=== PATIENT | male | born 1950 | race Caucasian/White ===

== ENCOUNTER 2019-08-16 10:46 | Inpatient (IN) | payer MEDICARE, SELFPAY ==
--- NOTE | ~2019-08-16 | US_ITS ---
EXAMINATION: US paracentesis abd w/image DATE: 08/16/2019 17:20 ENGINE WIPER INDICATION: Ascites TECHNIQUE: Survey imaging of the abdomen was performed. The procedure for ultrasound-guided thoracen tesis and its risk and benefits were discussed with the patient. Risks included but were not limited to pain, bleeding, pneumothorax and infection. The patient verbalized understanding and provided wri tten consent. A time-out was performed to document the patient's name, date of , and site of procedure. The [facility] lower abdomen was prepped and draped in usual sterile fashion. 1% lidocaine was used for local a nesthesia. Utilizing ultrasound guidance, a 21-gauge needle was advanced into pleural fluid. Aspira tion was performed. The patient tolerated procedure without immediate complication. Sterile bandages were applied over t he aspiration site(s).] FINDINGS: 5 L of tracie color fluid obtained without complication. IMPRESSION: 1. Successful ultrasound-guided paracentesis. 5 L of tracie-colored fluid obtained. Reviewed, dictated and finalized at location A. NE WIPER IMPRESSION: 1. Successful ultrasound-guided paracentesis. 5 L of tracie-colored fluid april rolle.
--- NOTE | ~2019-08-16 | CT_ITS ---
EXAMINATION: CT abdomen pelvis w con DATE: 08/16/2019 12:23 INDICATION: Jaundice. Weight loss. TECHNIQUE: Computed tomography (CT) of the abdomen and pelvis was performed with 100 cc Omnipaque 350 intravenous contrast. The dose-length product was 1369.22 mGy-cm. Automated exposure control and ite rative reconstruction technique were employed. COMPARISON: None. FINDINGS: Small pleural effusions, right greater than left. There is right lower lobe atelectasis. Th ere is atherosclerosis of the coronary arteries. Heart size is normal. No evidence for aortic aneurys m. 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 There is periportal lymphadenopathy. There are paraesophageal lymph nodes in the lower thorax. There is a necrotic lymph node adjacent to the right renal hilum measuringr 2.4 cm. There are in numerable hypovascular masses of the liver involving all lobes most conglomerate in the left hepatic lobe, consistent with metastases. Large amount of ascites. Diffuse subcutaneous edema co nsistent with anasarca. Colonic diverticulosis. No focal colonic masses. Normal appendix. There is a complex heterogeneously enhancing 2.8 cm left renal mass, consistent with renal cell carci noma. There are accessory splenules at the splenic hilum. The adrenal glands are unremarkable. No foc al hepatic masses. Right kidney within normal limits. Sclerotic lesion of the left sacrum. Moderate t horacic and lumbar spondylosis. IMPRESSION: 1. Innumerable hypovascular masses of the liver, compatible with metastases, most confluent in the le ft hepatic lobe. 2: Complex enhancing 2.8 cm left renal mass, consistent with renal cell carcinoma. 3: Abdominal lymphadenopathy, compatible with metastatic disease. 4: Large amount of ascites, small pleural effusions and subcutaneous edema, consistent with anasarca. 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 6: Sclerotic lesion of the left sacrum which may represent a bone island or metastatic disease. Reviewed, dictated and finalized at location A. AKER IMPRESSION: 1. Innumerable hypovascular masses of the liver, compatible with metastases, mo st confluent in the left hepatic lobe. 2: Complex enhancing 2.8 cm left renal mass, consistent with renal cell carcino ma. 3: Abdominal lymphadenopathy, compatible with metastatic disease. 4: Large amount of ascites, small pleural effusions and subcutaneous edema, con sistent with anasarca. 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 6: Sclerotic lesion of the left sacrum which may represent a bone island or me tastatic disease.
--- NOTE | ~2019-08-16 | US_ITS ---
EXAMINATION: US biopsy liver DATE: 08/19/2019 14:12 INDICATION: Liver mass. TECHNIQUE: The procedure including the risks, benefits, and alternatives was discussed with the patie nt. Risks discussed included bleeding and infection. The patient understood the risks and agreed to p roceed. The skin overlying the left hepatic lobe was prepped and draped in usual sterile fashion. An esthetic was administered with 1% lidocaine subcutaneously. An 18 gauge core biopsy needle was then used to obtain 3 core biopsy specimens under continuous sonographic guidance. The entry site was daniele aquilino and dressed. There were no immediate complications. FINDINGS: Ultrasound images demonstrate the needle in a large mass in left hepatic lobe. IMPRESSION: 1. Ultrasound-guided core needle biopsy of a liver mass. Reviewed, dictated and finalized at location A. BER OPERATOR
--- NOTE | ~2019-08-16 | US_ITS ---
EXAMINATION: US paracentesis abd w/image DATE: 08/19/2019 14:15 INDICATION: Ascites. TECHNIQUE: The procedure and its risks, benefits, and alternatives were discussed with the patient. P otential risks discussed included bleeding and infection. The skin was prepped and draped in sterile fashion. 1% lidocaine was used for local anesthesia. Under ultrasound guidance, a 5 Fr catheter with trochar was advanced into the ascites in the left lower quadrant. Fluid was aspirated. The catheter w as removed, and a dressing was applied. There were no immediate complications. FINDINGS: Ultrasound images demonstrate ascites and the catheter within the fluid. IMPRESSION: 1. Successful ultrasound-guided paracentesis yielding 5000 mL of tracie-colored fluid. Reviewed, dictated and finalized at location A. CORNER STAYER MACHINE OPERATOR
--- NOTE | ~2019-08-16 | XR_ITS ---
EXAMINATION: XR shoulder LT min 2V EXAM DATE: 08/20/2019 18:19 INDICATION: Left shoulder pain. TECHNIQUE: The following left shoulder projections obtained: frontal projection with internal rotatio n, frontal projection with external rotation, Grashey, and scapular Y view (4+ views). There is no p rior study for comparison. FINDINGS: No evidence of left shoulder rotator cuff calcific tendinosis. There is mild left shoulder primary osteoarthritis. There are no acute fractures or dislocations identified. There is no subcut aneous gas. The soft tissue is unremarkable. There are no radiopaque foreign bodies. IMPRESSION: Mild left shoulder osteoarthritis. Reviewed, dictated and finalized at location A. ER APPRENTICE PHOTOENGRAVING
[2019-08-16 10:52] VITALS: BP 115/63; PULSE 97; RESP 19; TEMP 36.4; O2SAT 100
[2019-08-16 11:18] LABS: Basophils Percent Auto 0.2 % (0.2-1.2); Eosinophils Percent Auto 0.2 % (0-4.4); Hematocrit 46.9 % (42.0-52.0); Hemoglobin 15.1 g/dL (14.0-18.0); Immature Granulocyte Absolute 0.04 K/mm3 (0.00-0.031); Immature Granulocyte Percent A 0.6 % (0-0.5); Immature Platelet Fraction Pct 6.3 % (0.9-11.2); Lymphocytes Absolute Auto 0.72 K/mm3 (0.9-3.2); Lymphocytes Percent Auto 11.1 % (18.3-44.2); Mean Corpuscular HGB Conc 32.2 g/dl (32-36); Mean Corpuscular Hemoglobin 31.7 pg (26-34); Mean Corpuscular Volume 98.5 fl (80-100); Mean Platelet Volume 11.8 fl (7.4-10.4); Monocytes Absolute Auto 0.5 K/mm3 (0.1-0.6); Monocytes Percent Auto 7.4 % (2.6-8.5); Neutrophils Absolute Auto 5.2 K/mm3 (1.3-6.7); Neutrophils Percent Auto 80.5 % (45.5-73.1); Platelet Count Result 129 k/mm3 (150-375); Red Blood Count 4.76 M/mm3 (4.6-6.20); White Blood Count 6.5 K/mm3 (4.5-10.0)
[2019-08-16 11:26] LABS: Lactic Acid 2.2 mmol/L (0.7-2.1)
[2019-08-16 11:27] LABS: Alanine Aminotransferase 40 U/L (4-50); Albumin Level 3.5 g/dL (3.5-5.1); Alkaline Phosphatase 229 U/L (38-126); Aspartate Amino Transferase 83 U/L (17-59); Bilirubin Direct 1.2 mg/dL (0-0.3); Bilirubin,Total 4.8 mg/dL (0.2-1.3); Blood Urea Nitrogen 32 mg/dL (9-20); Carbon Dioxide 25 mmol/L (22-30); Chloride 101 mmol/L (98-107); Estimated CRCL calculation 69 ml/min; Estimated Glomerular Filt Rate > 60; Glucose 81 mg/dL (75-110); Lipase 32 U/L (23-300); Potassium 3.5 mmol/L (3.4-5.0); Sodium 138 mmol/L (137-145)
--- NOTE | 2019-08-16 11:47 | ED.GENADULT ---
HPI - General Adult General Chief complaint: Unspecified Stated complaint: L FLANK PAIN, BILAT ANKLE SWELLING Time Seen by Provider: 08/16/19 11:40 Source: patient and RN notes reviewed Mode of arrival: ambulatory Limitations: no limitations History of Present Illness HPI narrative: Pt is a 69 y/o male who presents to the ED with c/o BLE edema which began 5 months ago. Pt also reports frequent falls, bilateral flank pain, jaundice in his eyes and on his face, difficulty walking, decreased appetite, generalized weakness, SOB, lower diffuse ABD pain, and ABD distension, but denies diarrhea, dysuria, or urinary frequency. However, the pt reports his urine is much darker than normal. He reports due to his frequent falls, the pt has injured his scapulas. He also has experienced weight loss, but he is unsure of how much weight he has lost. Pt reports a PMHx of HTN, but denies hepatitis. He denies having any major surgeries in the past. complaint: BLE edema Onset (ago): month(s) (5 months ago) Location: lower extremity (BLE) Radiation: non-radiation Pain Consistency: constant Associated symptoms: loss of appetite (decreased appetite), shortness of breath, weakness (generalized) and other (bilateral flank pain; jaundice in his eyes and face; lower diffuse ABD pain; ABD distension) Related Data Home Medications Medication Instructions Recorded Confirmed atenolol 08/16/19 Allergies Allergy/AdvReac Type Severity Reaction Status Date / Time Tetanus Vaccines and Toxoid Allergy Unknown Verified 06/20/19 10:50 Review of Systems Review of Systems: All systems reviewed & are unremarkable except as noted in HPI and below Constitutional: Constitutional: Reports poor appetite (decreased appetite) and Reports weakness (generalized) Cardiovascular: Cardiovascular: Reports leg edema (BLE edema) Respiratory: Respiratory: Reports dyspnea Gastrointestinal: Gastrointestinal: Reports abdominal pain (lower diffuse ABD pain), Denies diarrhea and Reports other (ABD distension) Genitourinary: Genitourinary: Denies dysuria and Denies urinary frequency Musculoskeletal: Musculoskeletal: Reports back pain (bilateral flank pain) Integumentary/Breasts: Skin/Breast: Reports other (jaundice in eyes and on face) [facility] Past Medical History Medical History (Updated 08/16/19 @ 15:18 by Wilmer Smith MD) Hypertension Family History Family History (System 06/20/19 @ 10:50 by Paula Murphy) Mother Carcinoma of colon Family history of primary malignant neoplasm of liver Social History Social History (System 06/20/19 @ 10:50 by Paula Murphy) Smoking status: Heavy tobacco smoker Alcohol intake: current Gender identity (if verbalized by the patient): Male Exam Narrative: Exam Narrative: GENERAL: Ill ll-appearing, well-nourished, and in no acute distress. HEAD: Normocephalic, atraumatic. EYES: PERRL and EOMI. scleral icterus noted ENT: Mucous membranes moist. Dilated capillaries to the nose and cheeks. CHEST: Clear to auscultation. No respiratory distress. HEART: Regular rate and rhythm. Normal capillary refill. ABDOMEN: Soft, nontender, nondistended, ascites within abdomen.. EXTREMITIES: Normal range of motion. 3+ edema. SKIN: Warm, dry, jaundice, no rash. NEURO: Alert and oriented x3. Course Consultations Consultation #1: Discussed case with Dr. Rdz who agreed to consult the pt. Stated the pt's symptoms could be due to an obstruction, however, advised to consult GI specialist for the pt. Date: 08/16/19 Time: 13:45 Consultation #2: Discussed case with GI specialist, Dr. Hill. Dr. Hill stated the pt?s symptoms are likely related to liver metastases and not an obstruction. He advises a paracentesis and further workup on the pt. Date: 08/16/19 Time: 14:13 Consultation #3: Discussed case with hospitalist, Letha Balbuena, who agreed pt for admission. Date: 08/16/19 Time: 14:25 Vital Signs Vital
--- NOTE | 2019-08-16 12:07 | PC.NURSE ---
gave pt a urinal for a urine sample, pt said he is unable to urinate at this time.
[2019-08-16 12:09] VITALS: BP 108/78; PULSE 58; RESP 20; O2SAT 97
--- NOTE | 2019-08-16 12:24 | ECG_ITS ---
Measurements Intervals [place] Rate: 59 P: -30 NE: 170 QRS: -9 QRSD: 113 T: -29 QT: 441 QTc: 439 Interpretive Statements SINUS BRADYCARDIA WITH SINUS ARRHYTHMIA INCOMPLETE RIGHT BUNDLE BRANCH BLOCK ANTEROSEPTAL INFARCT, AGE INDETERMINATE BORDERLINE ST-T WAVE ABNORMALITY- DIFFUSE LEADS BASELINE ARTIFACT- I, II, AVR, AVF, V4-V5 ABNORMAL ECG Electronically Signed On 08-16-2019 12:51:31 [employer] SCI[employer] READ[employer] by Gurmeet Watson D.O.
--- NOTE | 2019-08-16 12:44 | PC.NURSE ---
pt educated on providing urine sample in a timely manner so we can get his lab results completed and so we can better treat him. pt verbalized understanding and states he will try to urinate at this time.
[2019-08-16 13:07] VITALS: BP 109/53; PULSE 58; RESP 20; O2SAT 96
[2019-08-16 14:48] LABS: INR 1.1; Prothrombin Time 13.5 Seconds (11.1-14.7)
--- NOTE | 2019-08-16 15:19 | ADMGEN ---
This patient, Charles Harman, was admitted to Medical Room 252-01. Patient/family oriented to hospital policies and general routines including ID bracelet, bed and alarms, visiting hours, pain management, procedures, bathroom and other care routines, personal items, smoking policy, room service/diet, and visiting hours. Valuables list has been completed. Information on how to activate the Rapid Response Team has been discussed. Patient/Family are encouraged to report perceived risks to care and to ask questions if they do not understand what they are told or what they should do.
[2019-08-16 15:20] VITALS: BMI 30.4
--- NOTE | 2019-08-16 15:50 | PC.NURSE ---
To ultrasound for paracentesis via stretcher with clinical staff rn. Consent obtained and on chart.
--- NOTE | 2019-08-16 15:50 | WPDGICN ---
Assessment and Plan Additional Plan This is a 69-year-old white male patient seen in evaluation at the request of the emergency room. I am asked to see patient because of jaundice and abnormal CT scan.. Patient reports increasing malaise over the last 1 month. He has had poor to minimal appetite and has lost approximately 20-30 lb. He began to have swelling in his abdomen and lower extremities. Upon presenting to the emergency room was found to have yellow jaundice. Patient reports a vague left lower quadrant abdominal discomfort. He denies any other overt pain. His urine has become somewhat dark in color. He denies any fevers. Past medical history is significant for prostate cancer treated at the [facility] 10 years ago by radiation therapy. His subsequent PSA values have been normal. He he has been treated for hypertension with a tunnel all. Current medications include only a tunnel He has no stated drug allergies. Family history is significant his mother had cancer of the colon. Review of systems is significant for no appetite. Room 20-30 lb weight loss. Physical exam reveals patient to be alert. he has scleral icterus. Oral mucosa is unremarkable. Lungs are clear to auscultation and percussion. Heart is without murmur or extra sounds. Abdomen is distended with shifting dullness. No organomegaly is evident. No localized tenderness is noted. Digital rectal exam is unremarkable. Extremities reveal 3+ edema bilaterally. Laboratory tests reveal CBC to be normal. Total bilirubin 4.8 direct bilirubin 1.2 AST 83 ALT 40 alk-phos 229. CT scan of the abdomen reveals liver lesions consistent with metastases. he has a renal mass consistent with renal cell carcinoma. Significant ascites is noted to be present. Impression 1. Abnormal CT scan. This is suggestive of a renal cancer and liver metastases. 2. Liver metastases. This is somewhat unlikely to come from the renal mass. Other etiologies may need to be considered . oncology consult will be obtained. 3. Ascites. Very likely malignant ascites. Plan is for paracentesis for analysis as well as cytology. Plan is for CT-guided liver biopsy and paracentesis. Oncology consult for their input on potential treatment. Will consider further investigations searching for primary malignancy depending on Oncology input. Patient's mother has colon cancer raising colon cancer as a potential primary. Chest x-ray is advised to search for possible lung lesions. GI Consult Note Consult date/time: 08/16/19 15:50 HPI: Charles Harman is a 69 year old male PMFSH Past Medical History Medical History (Updated 08/16/19 @ 15:18 by Wilmer Smith MD) Hypertension Family History Family History (System 06/20/19 @ 10:50 by Paula Murphy) Mother Carcinoma of colon Family history of primary malignant neoplasm of liver Social History Social History (System 06/20/19 @ 10:50 by Paula Murphy) Smoking packs per day: 0.5 Smoking cigarettes per day: 10.0 Years smoked: 57 Smoking pack-years: 28.50 Smoking status: Current every day smoker Tobacco type: cigarettes Alcohol intake: former Substance use: never Substance use type: does not use Other substance usage details: heavy alcohol drinker 20 years ago Gender identity (if verbalized by the patient): Male Spiritual care concerns: No Agree to blood products: Yes Meds Home Medications and Allergies Home Medications Medication Instructions Recorded Confirmed Type atenolol 08/16/19 History Allergies Allergy/AdvReac Type Severity Reaction Status Date / Time Tetanus Vaccines and Toxoid Allergy Unknown Verified 06/20/19 10:50 Vital Signs Vital Signs - 24 hr 08/16/19 10:52 08/16/19 12:09 08/16/19 13:07 Temperature 36.4 C Pulse Rate 97 58 L 58 L Respiratory Rate 19 20 20 Blood Pressure 115/63 108/78 109/53 L Pulse Oximetry 100 97 96 Results Labs CBC
[2019-08-16 15:58] VITALS: BMI 30.4
--- NOTE | 2019-08-16 17:16 | PC.NURSE ---
Patient returned from ultrasound via stretcher with transporter. No distress noted. Bandaid D/I to left lateral abdomen.
[2019-08-16] MEDS: SODIUM CHLORIDE 0.9% IV 1,000 ML 125 ML IV CONT (17:46)
[2019-08-16 17:56] LABS: Appearance Peritoneal Fluid Hazy (Clear); Color Peritoneal Fluid Yellow (Colorless); Lymphocytes Peritoneal Fluid 32 %; Macrophages Peritoneal Fluid 22 %; Mesothelial Cells Peritoneal Fluid 14 %; Monocytes Peritoneal Fluid 20 %; Neutrophils Peritoneal Fluid 12 % (0-25); Nucleated Cells Peritoneal Flu 156 /uL (0-500); RBC Peritoneal Fluid 4616 /uL (0-100000); Source Peritoneal Fluid Peritoneal Fluid
--- NOTE | 2019-08-16 21:28 | PM.IMHP ---
H&P: HPI History of Present Illness Chief complaint: LE swelling Narrative: This is a 69-year-old with known past medical history of hypertension and previous prostate cancer who presented to the hospital with a complaint of worsening low bilateral lower extremity swelling which has been ongoing for the past 5 months. The patient also complains of significant generalized weakness, orthopnea, exertional shortness of breath, significant abdominal distension, and increased diffuse yellow skin color. The patient denies any recent fevers or chills, coughing, sore throat, dysuria, hematuria, diarrhea, or rectal bleeding. The patient was evaluated emergency room today and found to have anasarca, elevated liver enzymes, as well as findings on CT scan consistent with metastatic disease. The patient has no previous history of liver disease or hepatitis. The patient tells me that he has never been worked up for this before in the past and he was not aware of these findings. Oncology, Dr. Rdz has been consulted by the ER provider who has asked that we admit the patient to the hospital for a liver biopsy. Gastroenterology, Dr. Hill has also been consulted and has had the patient undergo a paracentesis today. The patient tells me that they pulled off 5 liters of fluid today from his abdomen. On my encounter with the patient tonight he has no other complaints and tells me that he wants to know what his treatment choices are. Review of Systems Review of Systems: All systems reviewed & are unremarkable except as noted in HPI and below PMFSH Past Medical History Medical History Hypertension Prostate cancer Family History Family History Mother Family history of primary malignant neoplasm of liver Carcinoma of colon Diabetes mellitus Father Diabetes mellitus Heart disease Sibling Diabetes mellitus Sibling Diabetes mellitus Social History Social History Smoking packs per day: 0.5 Smoking cigarettes per day: 10.0 Years smoked: 57 Smoking pack-years: 28.50 Smoking status: Current every day smoker Tobacco type: cigarettes Alcohol intake: former Substance use: never Substance use type: does not use Other substance usage details: heavy alcohol drinker 20 years ago Gender identity (if verbalized by the patient): Male Spiritual care concerns: No Agree to blood products: Yes Meds Home Medications and Allergies Home Medications Medication Instructions Recorded Confirmed Type aspirin [Aspirin Low Dose] 81 mg PO DAILY 08/16/19 08/16/19 History atenolol 100 mg PO DAILY 08/16/19 08/16/19 History cholecalciferol (vitamin D3) 2,000 unit PO DAILY 08/16/19 08/16/19 History [Vitamin D3] Allergies Allergy/AdvReac Type Severity Reaction Status Date / Time Tetanus Vaccines and Toxoid Allergy Unknown Verified 06/20/19 10:50 Vital Signs Vital Signs - 24 hr 08/16/19 10:52 08/16/19 12:09 08/16/19 13:07 Temperature 36.4 C Pulse Rate 97 58 L 58 L Respiratory Rate 19 20 20 Blood Pressure 115/63 108/78 109/53 L Pulse Oximetry 100 97 96 Exam Const: General: cooperative, no acute distress, alert, awake and ill appearing chronically Nutritional Appearance: obese Orientation/consciousness: oriented x3 HENMT: Head: normal to inspection General nose exam: external nose normal Face and sinus: normal facial exam Mouth: Yes oral mucosae normal and Yes oropharynx normal Eyes: Pupils: PERRL and other (icteric) EOM: EOM intact bilaterally Neck: Neck: supple and no JVD Thyroid: thyroid normal Lymphatic: lymphadenopathy not noted Resp: Effort & Inspection: normal respiratory effort Auscultation: clear to auscultation bilaterally Cardio: Rate: regular rate Rhythm: regular rhythm Heart sounds: murmur systolic GI
[2019-08-16 22:00] VITALS: BP 96/63; PULSE 54; RESP 20; TEMP 36.1; O2SAT 100
[2019-08-17 04:00] VITALS: BP 103/53; PULSE 80; RESP 20; TEMP 35.7; O2SAT 96
[2019-08-17 06:13] LABS: Alanine Aminotransferase 33 U/L (4-50); Albumin Level 2.7 g/dL (3.5-5.1); Alkaline Phosphatase 173 U/L (38-126); Aspartate Amino Transferase 67 U/L (17-59); Bilirubin,Total 2.6 mg/dL (0.2-1.3); Blood Urea Nitrogen 30 mg/dL (9-20); Calcium 10.3 mg/dL (8.4-10.2); Carbon Dioxide 31 mmol/L (22-30); Chloride 101 mmol/L (98-107); Estimated CRCL calculation 69 ml/min; Estimated Glomerular Filt Rate > 60; Glucose 95 mg/dL (75-110); Sodium 139 mmol/L (137-145)
[2019-08-17 06:58] LABS: Hepatitis B Surface Antigen Negative (Negative)
[2019-08-17 07:03] LABS: HAV RESULT Negative (Negative); Hepatitis B Core IgM Result Negative (Negative)
[2019-08-17] MEDS: POTASSIUM CHLORIDE 20 MEQ TABLET 40 MEQ PO ×2 (07:06→15:22)
[2019-08-17 07:10] LABS: Lactic Acid Reflex 1.2 mmol/L (0.7-2.1)
[2019-08-17 07:15] LABS: Hepatitis C Virus Antibody Negative (Negative)
[2019-08-17 08:08] LABS: Basophils Percent Auto 0.2 % (0.2-1.2); Eosinophils Percent Auto 0.4 % (0-4.4); Hematocrit 40.4 % (42.0-52.0); Hemoglobin 12.7 g/dL (14.0-18.0); Immature Granulocyte Absolute 0.03 K/mm3 (0.00-0.031); Immature Granulocyte Percent A 0.6 % (0-0.5); Lymphocytes Absolute Auto 0.83 K/mm3 (0.9-3.2); Lymphocytes Percent Auto 16.3 % (18.3-44.2); Mean Corpuscular HGB Conc 31.4 g/dl (32-36); Mean Corpuscular Hemoglobin 31.4 pg (26-34); Mean Platelet Volume 12.4 fl (7.4-10.4); Monocytes Absolute Auto 0.5 K/mm3 (0.1-0.6); Neutrophils Absolute Auto 3.7 K/mm3 (1.3-6.7); Neutrophils Percent Auto 72.5 % (45.5-73.1); Platelet Count Result 111 k/mm3 (150-375); Red Blood Count 4.04 M/mm3 (4.6-6.20); Red Cell Distribution Width 15.9 % (11.5-14.5); White Blood Count 5.1 K/mm3 (4.5-10.0)
--- NOTE | 2019-08-17 08:57 | WPDGIPROGNO ---
Progress Note: A&P Additional Plan Patient appears more comfortable this morning. Had paracentesis with 4liters withdrawn yesterday. Today abdomen is soft no localized tenderness evident. Impression abnormal CT scan suggesting liver metastases. Also a renal cancer is suspected. Plan to review his cytology from ascitic fluid when available. CT-guided liver biopsy is also suggested. Oncology consult is pending. Continue supportive care for now. Subjective Date/time seen: 08/17/19 08:57 Objective Data Vital Signs Vital Signs: Vital Signs - 24 hr 08/16/19 10:52 08/16/19 12:09 08/16/19 13:07 Temperature 36.4 C Pulse Rate 97 58 L 58 L Respiratory Rate 19 20 20 Blood Pressure 115/63 108/78 109/53 L Pulse Oximetry 100 97 96 08/16/19 22:00 08/17/19 04:00 Temperature 36.1 C L 35.7 C L Pulse Rate 54 L 80 Respiratory Rate 20 20 Blood Pressure 96/63 L 103/53 L Pulse Oximetry 100 96 Intake/Output Intake/Output: Intake & Output 08/14/19 08/15/19 08/16/19 08/17/19 23:59 23:59 23:59 23:59 Intake Total 150 1150 Output Total 5000 200 Balance -4850 950 Meds/Results Medications: Active Medications Generic Name Dose Route Start Last Admin Trade Name Freq PRN Reason Stop Dose Admin Acetaminophen 650 mg 08/16/19 14:29 Tylenol Tablet PO Q4H PRN Mild Pain (1-3) or Fever Hydrocodone Bitart/Acetaminophen 1 tab 08/16/19 14:29 [place] 5-325 Mg PO Q4H PRN Pain Rated 4-6 Morphine Sulfate 4 mg 08/16/19 14:29 Morphine Sulfate Inj IV PUSH Q2H PRN Pain Rated 7-10 Ondansetron HCl 4 mg 08/16/19 14:29 Zofran Inj IV PUSH Q4H PRN Nausea Radiology Results: ITS Impressions Abdomen/Pelvis CT 08/16/19 12:33 IMPRESSION: 1. Innumerable hypovascular masses of the liver, compatible with metastases, most confluent in the left hepatic lobe. 2: Complex enhancing 2.8 cm left renal mass, consistent with renal cell carcinoma. 3: Abdominal lymphadenopathy, compatible with metastatic disease. 4: Large amount of ascites, small pleural effusions and subcutaneous edema, consistent with anasarca. 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 6: Sclerotic lesion of the left sacrum which may represent a bone island or metastatic disease. Paracentesis Ultrasound 08/16/19 17:20 IMPRESSION: 1. Successful ultrasound-guided paracentesis. 5 L of tracie-colored fluid obtained. Labs Labs: Laboratory Results - last 24 hr 08/16/19 08/16/19 08/16/19 11:05 11:05 11:05 WBC 6.5 RBC 4.76 Hgb 15.1 Hct 46.9 MCV 98.5 MCH 31.7 MCHC 32.2 RDW 16.0 H Plt Count 129 L MPV 11.8 H Immature Gran % (Auto) 0.6 H Neut % (Auto) 80.5 H Lymph % (Auto) 11.1 L [place] % (Auto) 7.4 Eos % (Auto) 0.2 Baso % (Auto) 0.2 Lymph # (Auto) 0.72 L [place] # (Auto) 0.5 Eos # (Auto) 0.0 Baso # (Auto) 0.0 Abs Immat Gran (auto) 0.04 H Absolute Neuts (auto) 5.2 Absolute Nucleated RBC 0.0 Nucleated RBC % 0.0 % Immature Plt Fraction 6.3 PT INR Sodium 138 Potassium 3.5 Chloride 101 Carbon Dioxide 25 BUN 32 H Creatinine 1.10 Estim Creat Clear Calc 69 Estimated GFR > 60 Glucose 81 Lactic Acid 2.2 H Calcium 11.0 H Total Bilirubin 4.8 H Direct Bilirubin 1.2 H AST 83 H ALT 40 Alkaline Phosphatase 229 H Total Protein 7.0 Albumin 3.5 Lipase 32 Peritoneal Source Peritoneal Color Peritoneal Appearance Peritoneal RBC Periton Nuc Cells Periton Neutrophils Periton Lymphocytes Peritoneal Monocytes Periton Mesothelial Periton Macrophages Hepatitis A IgM Ab Hep Bs Antigen Hep B Core IgM Ab Hepatitis C Ab Screen 08/16/19 08/16/19 08/16/19 11:05 16:26 17:00 WBC RBC Hgb Hct MCV MCH MCHC RDW Plt Count MPV Immature Gran % (Auto) Ne
[2019-08-17 11:56] LABS: Blood Urea Nitrogen 28 mg/dL (9-20); Calcium 10.4 mg/dL (8.4-10.2); Carbon Dioxide 30 mmol/L (22-30); Chloride 101 mmol/L (98-107); Estimated CRCL calculation 75 ml/min; Estimated Glomerular Filt Rate > 60; Glucose 104 mg/dL (75-110); Potassium 3.1 mmol/L (3.4-5.0); Sodium 136 mmol/L (137-145)
[2019-08-17 14:00] VITALS: BP 111/76; PULSE 58; RESP 16; TEMP 36.5; O2SAT 98
--- NOTE | 2019-08-17 19:03 | PM.IMPN ---
Progress Note: A&P Assessment and Plan (1) Left kidney mass: Code(s): N28.89 - Other specified disorders of kidney and ureter Status: Acute Assessment and Plan: CT reveals 2.8 left renal mass concerning for RCC, abdominal lymphadenopathy, innumerable liver masses, sclerotic lesion of sacrum, large amount of ascites. He has a remote history of prostate cancer over 10 years ago treated with radiation. Mother had colon CA. Discussed these results at length with patient and family members at bedside. Underwent paracentesis today yielding 5L tracie fluid. CT liver biopsy is ordered however I am told this cannot be done over the weekend. Patient admitted to the hospital at the request of oncology service. Appreciate oncology recommendations. (2) Cancer, metastatic to liver: Code(s): C78.7 - Secondary malignant neoplasm of liver and intrahepatic bile duct Status: Acute Assessment and Plan: See above. (3) Thrombocytopenia: Code(s): D69.6 - Thrombocytopenia, unspecified Status: Acute Assessment and Plan: [place] to be secondary to metastatic disease. Monitor platelets. Consider transfusion if necessary. (4) Transaminitis: Code(s): R74.0 - Nonspecific elevation of levels of transaminase and lactic acid dehydrogenase [LDH] Status: Acute Assessment and Plan: Secondary to metastatic disease to liver. Monitor LFTs. (5) Elevated lactic acid level: Code(s): R79.89 - Other specified abnormal findings of blood chemistry Status: Acute Assessment and Plan: Resolved. (6) Hyperbilirubinemia: Code(s): E80.6 - Other disorders of bilirubin metabolism Status: Acute Assessment and Plan: Appears to be secondary to metastatic disease to liver. Monitor bilirubin, improved today. (7) Anasarca: Code(s): R60.1 - Generalized edema Status: Acute Assessment and Plan: Likely secondary to metastatic disease and liver involvement. Monitor fluid status. (8) Hypertension: Qualifiers: Hypertension type: unspecified Qualified Code(s): I10 - Essential (primary) hypertension Code(s): I10 - Essential (primary) hypertension Status: Chronic Assessment and Plan: Stable with some lower BPs. Hold home atenolol. (9) Heart murmur, systolic: Code(s): R01.1 - Cardiac murmur, unspecified Status: Acute Assessment and Plan: Echocardiogram results noted. 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 (11) Ambulatory dysfunction: Code(s): R26.2 - Difficulty in walking, not elsewhere classified Status: Acute Assessment and Plan: Certainly seems to have a component of peripheral vascular disease. He reports not much sensation or motor function in his lower extremities for > 1 year, however he still lives at home alone and reports ambulating with a walker. Family at bedside is reasonably concerned for him to return home alone. Appreciate PT/OT evals. Patient is not interested in SNF but is agreeable for home health if appropriate. (12) DVT prophylaxis: Code(s): Z29.9 - Encounter for prophylactic measures, unspecified Status: Acute Assessment and Plan: SCDs Subjective Date/time seen: 08/17/19 1530 Interval history: Mr. Harman is a 69yo M admitted with ascites, liver masses, renal mass concerning for metastatic malignancy. He reports feeling well today but feels his abdomen is just as distended
--- NOTE | 2019-08-17 21:43 | ECHO_ITS ---
Patient Info Name: Charles Harman Age: 69 years : 1950 Gender: Male Ht: 72 in Wt: 224 lbs BSA: 2.30 m2 HR: 80 bpm BP: 103 / 53 mmHg Heart Rhythm: Sinus Rhythm Technical Quality: Good Exam Date: 08/17/2019 8:27 AM Exam Location: [facility] Pulmonary Exam Room: [facility] Patient Status: Inpatient Admit Date: 08/16/2019 Staff Ordering Physician: Dakota Daley MD Finishing Lab Technician: Iman Singh RDCS Attending Provider: Domonique Hernandez PA-C Referring Physician: Edi BHAGAT; Exam Type: CA echo doppler color flow Study Info Indications - NEW HRT MURMUR EMI Complete two-dimensional, color flow and Doppler transthoracic echocardiogram is performed. Summary 1. Left ventricular systolic function is hyperdynamic, estimated at >70%. 2. There is trace aortic valve regurgitation. 3. There is mild mitral valve regurgitation. Left Ventricle Left ventricular chamber dimension is normal. Left ventricular systolic function is hyperdynamic, estimated at >70%. The left ventricular diastolic function is grade I diastolic dysfunction. Right Ventricle Right ventricular chamber dimension is normal. Left Atria Left atrial chamber dimension is normal. Right Atria Right atrial chamber dimension is normal. Aortic Valve The aortic valve is trileaflet. There is trace aortic valve regurgitation. Pulmonic Valve The pulmonic valve is not well visualized. Mitral Valve The mitral valve has normal leaflets. There is mild mitral valve regurgitation. Tricuspid Valve The tricuspid valve leaflets are normal. Pericardium/Pleural The pericardium appears normal. Aorta The aortic root size at the sinus of Valsalva is normal. Left Ventricular Outflow Tract Name Value Normal LVOT 2D LVOT Diameter 2.1 cm LVOT Doppler LVOT Peak Gradient 11 mmHg LVOT Mean Gradient 7 mmHg LVOT VTI 33 cm LVOT VTI/AV VTI Ratio 1.0 LVOT Stroke Volume 110 ml LVOT CO 26.4 l/min LVOT CI 11.5 l/min/m2 Pulmonic Valve Name Value Normal PV Doppler PV Peak Gradient 4 mmHg Mitral Valve Name Value Normal MV Doppler MV Decel [place] 132 cm/s2 MV PHT 121 ms MV Area (PHT) 1.8 cm2 4.0-5.0 MV Diastolic Function MV E Peak Velocity
[2019-08-17 22:00] VITALS: BP 114/68; PULSE 73; RESP 16; TEMP 36.3; O2SAT 95
[2019-08-18 06:00] VITALS: BP 110/70; PULSE 63; RESP 14; TEMP 36.1; O2SAT 94
[2019-08-18 06:37] LABS: Basophils Percent Auto 0.2 % (0.2-1.2); Eosinophils Percent Auto 0.5 % (0-4.4); Hematocrit 39.8 % (42.0-52.0); Hemoglobin 12.7 g/dL (14.0-18.0); Immature Granulocyte Absolute 0.02 K/mm3 (0.00-0.031); Immature Granulocyte Percent A 0.4 % (0-0.5); Lymphocytes Absolute Auto 0.78 K/mm3 (0.9-3.2); Lymphocytes Percent Auto 13.9 % (18.3-44.2); Mean Corpuscular HGB Conc 31.9 g/dl (32-36); Mean Corpuscular Hemoglobin 31.8 pg (26-34); Mean Corpuscular Volume 99.5 fl (80-100); Mean Platelet Volume 11.4 fl (7.4-10.4); Monocytes Absolute Auto 0.5 K/mm3 (0.1-0.6); Monocytes Percent Auto 9.3 % (2.6-8.5); Neutrophils Absolute Auto 4.3 K/mm3 (1.3-6.7); Neutrophils Percent Auto 75.7 % (45.5-73.1); Platelet Count Result 100 k/mm3 (150-375); Red Cell Distribution Width 15.9 % (11.5-14.5); White Blood Count 5.6 K/mm3 (4.5-10.0)
[2019-08-18 06:47] LABS: INR 1.2; Prothrombin Time 14.5 Seconds (11.1-14.7)
[2019-08-18 06:48] LABS: Partial Thromboplastin Time 30.1 SECONDS (22.3-36.8)
[2019-08-18 06:49] LABS: Alanine Aminotransferase 36 U/L (4-50); Albumin Level 2.7 g/dL (3.5-5.1); Alkaline Phosphatase 174 U/L (38-126); Aspartate Amino Transferase 70 U/L (17-59); Bilirubin,Total 2.2 mg/dL (0.2-1.3); Blood Urea Nitrogen 23 mg/dL (9-20); Calcium 10.3 mg/dL (8.4-10.2); Carbon Dioxide 30 mmol/L (22-30); Chloride 105 mmol/L (98-107); Estimated CRCL calculation 74 ml/min; Estimated Glomerular Filt Rate > 60; Glucose 99 mg/dL (75-110); Magnesium 1.8 mg/dL (1.6-2.3); Phosphorus 2.6 mg/dL (2.5-4.5); Potassium 3.9 mmol/L (3.4-5.0); Sodium 139 mmol/L (137-145)
--- NOTE | 2019-08-18 09:59 | PCPTNOTE ---
Orders to eval and treat....pt declined mutliple times...asked to defer eval until tomorrow...will see tomorrow as appropriate
--- NOTE | 2019-08-18 10:16 | PCOTNOTE ---
Attempted to complete OT evaluation this AM. Pt. refused stating I just cant do this right now. Come back tomorrow . Will attempt again tomorrow 08/19/19.
--- NOTE | 2019-08-18 13:31 | PM.IMPN ---
Progress Note: A&P Assessment and Plan (1) Left kidney mass: Code(s): N28.89 - Other specified disorders of kidney and ureter Status: Acute Assessment and Plan: CT reveals 2.8 left renal mass concerning for RCC, abdominal lymphadenopathy, innumerable liver masses, sclerotic lesion of sacrum, large amount of ascites. He has a remote history of prostate cancer over 10 years ago treated with radiation. Mother had colon CA. Discussed these results at length with patient and family members at bedside. Underwent paracentesis 08/[address] liver biopsy is ordered by Dr Hill however I am told this cannot be done over the weekend. Patient admitted to the hospital at the request of oncology service. Appreciate oncology recommendations. (2) Liver masses: Code(s): R16.0 - Hepatomegaly, not elsewhere classified Status: Acute Assessment and Plan: See above. (3) Thrombocytopenia: Code(s): D69.6 - Thrombocytopenia, unspecified Status: Acute Assessment and Plan: [place] to be secondary to above. Monitor platelets. Consider transfusion if necessary. (4) Transaminitis: Code(s): R74.0 - Nonspecific elevation of levels of transaminase and lactic acid dehydrogenase [LDH] Status: Acute Assessment and Plan: Secondary to metastatic disease to liver. Monitor LFTs. (5) Elevated lactic acid level: Code(s): R79.89 - Other specified abnormal findings of blood chemistry Status: Acute Assessment and Plan: Resolved. (6) Hyperbilirubinemia: Code(s): E80.6 - Other disorders of bilirubin metabolism Status: Acute Assessment and Plan: Appears to be secondary to metastatic disease to liver. Monitor bilirubin, improved today. (7) Anasarca: Code(s): R60.1 - Generalized edema Status: Acute Assessment and Plan: Likely secondary to metastatic disease and liver involvement. Monitor fluid status. (8) Hypertension: Qualifiers: Hypertension type: unspecified Qualified Code(s): I10 - Essential (primary) hypertension Code(s): I10 - Essential (primary) hypertension Status: Chronic Assessment and Plan: Stable with some lower BPs. Hold home atenolol and monitor. (9) Heart murmur, systolic: Code(s): R01.1 - Cardiac murmur, unspecified Status: Acute Assessment and Plan: Echocardiogram results noted. 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 (11) Ambulatory dysfunction: Code(s): R26.2 - Difficulty in walking, not elsewhere classified Status: Acute Assessment and Plan: Certainly seems to have a component of peripheral vascular disease. He reports not much sensation or motor function in his lower extremities for > 1 year, however he still lives at home alone and reports ambulating with a walker. Family at bedside is reasonably concerned for him to return home alone. Appreciate PT/OT evals. Patient is not interested in SNF but is agreeable for home health if appropriate. He declined PT eval this AM but we discussed he would need eval for home health arrangement, so he agrees to participate in therapy evaluations. (12) DVT prophylaxis: Code(s): Z29.9 - Encounter for prophylactic measures, unspecified Status: Acute Assessment and Plan: SCDs Subjective Date/time seen: 08/18/19 1030 Interval history: Mr. Harman is a 69yo M admitted with ascites, liver masses, renal
[2019-08-18 14:00] VITALS: BP 112/60; PULSE 67; RESP 16; TEMP 36.4; O2SAT 96
[2019-08-18] MEDS: CALCIUM CARBONATE (TUMS) 500 MG (200 MG ELEMENTAL) PO (17:38)
[2019-08-18] MEDS: FAMOTIDINE 20 MG/2 ML VIAL IV PUSH (20:14)
[2019-08-18 21:45] VITALS: BP 110/60; PULSE 68; RESP 16; TEMP 36.1; O2SAT 97
[2019-08-19 05:26] LABS: Glucose Peritoneal Fluid 89 mg/dL; LDH Peritoneal Fluid 47 U/L (<63); Total Protein Peritoneal Fluid <3.0 g/dL
[2019-08-19 05:38] LABS: Hematocrit 38.9 % (42.0-52.0); Hemoglobin 12.6 g/dL (14.0-18.0)
[2019-08-19 05:49] LABS: INR 1.2; Prothrombin Time 14.4 Seconds (11.1-14.7)
[2019-08-19 05:50] LABS: Partial Thromboplastin Time 32.4 SECONDS (22.3-36.8)
[2019-08-19 05:52] LABS: Alanine Aminotransferase 35 U/L (4-50); Albumin Level 2.6 g/dL (3.5-5.1); Alkaline Phosphatase 155 U/L (38-126); Aspartate Amino Transferase 65 U/L (17-59); Blood Urea Nitrogen 24 mg/dL (9-20); Calcium 10.3 mg/dL (8.4-10.2); Carbon Dioxide 29 mmol/L (22-30); Chloride 105 mmol/L (98-107); Estimated CRCL calculation 74 ml/min; Estimated Glomerular Filt Rate > 60; Glucose 93 mg/dL (75-110); Magnesium 1.8 mg/dL (1.6-2.3); Potassium 3.7 mmol/L (3.4-5.0); Sodium 139 mmol/L (137-145)
[2019-08-19 05:54] VITALS: BP 114/63; PULSE 71; RESP 16; TEMP 36.2; O2SAT 96
[2019-08-19 06:28] LABS: Mean Corpuscular HGB Conc 32.6 g/dl (32-36); Mean Corpuscular Hemoglobin 32.2 pg (26-34); Mean Platelet Volume 11.9 fl (7.4-10.4); Platelet Count Result 103 k/mm3 (150-375); Red Blood Count 3.94 M/mm3 (4.6-6.20); Red Cell Distribution Width 16.1 % (11.5-14.5); White Blood Count 5.7 K/mm3 (4.5-10.0)
--- NOTE | 2019-08-19 07:18 | WPDGIPROGNO ---
Progress Note: A&P Additional Plan pt comfortable at rest, abdomen soft , s/p paracentesis, no localized tenderness, LFTs stable, Impression, 1. abnormal CT scan, liver masses c/w mets. ct guided liver biopsy is pending. 2. ascites, s/p paracentesis, cytology is pending. 3. renal mass. 4. Jaundice . secondary to liver mets. Plan for cytology of ascites and liver biopsy, Oncology consult is pending, Subjective Date/time seen: 08/19/19 07:18 Objective Data Vital Signs Vital Signs: Vital Signs - 24 hr 08/18/19 14:00 08/18/19 21:45 08/19/19 05:54 Temperature 36.4 C 36.1 C L 36.2 C L Pulse Rate 67 68 71 Respiratory Rate 16 16 16 Blood Pressure 112/60 110/60 114/63 Pulse Oximetry 96 97 96 Intake/Output Intake/Output: Intake & Output 08/16/19 08/17/19 08/18/19 08/19/19 23:59 23:59 23:59 23:59 Intake Total 150 2050 990 100 Output Total 5000 850 650 450 Balance -4850 1200 340 -350 Meds/Results Medications: Active Medications Generic Name Dose Route Start Last Admin Trade Name Freq PRN Reason Stop Dose Admin Acetaminophen 650 mg 08/16/19 14:29 Tylenol Tablet PO Q4H PRN Mild Pain (1-3) or Fever Hydrocodone Bitart/Acetaminophen 1 tab 08/16/19 14:29 08/18/19 16:47 [place] 5-325 Mg PO 1 tab Q4H PRN Administration Pain Rated 4-6 Calcium Carbonate 200 mg 08/18/19 17:09 08/18/19 17:38 Tums PO 200 mg Q6H PRN Administration Indigestion Famotidine 20 mg 08/18/19 21:00 08/18/19 20:14 Pepcid Iv IV PUSH 20 mg Q12HR FELIX Administration Morphine Sulfate 4 mg 08/16/19 14:29 Morphine Sulfate Inj IV PUSH Q2H PRN Pain Rated 7-10 Ondansetron HCl 4 mg 08/16/19 14:29 Zofran Inj IV PUSH Q4H PRN Nausea Radiology Results: ITS Impressions Abdomen/Pelvis CT 08/16/19 12:33 IMPRESSION: 1. Innumerable hypovascular masses of the liver, compatible with metastases, most confluent in the left hepatic lobe. 2: Complex enhancing 2.8 cm left renal mass, consistent with renal cell carcinoma. 3: Abdominal lymphadenopathy, compatible with metastatic disease. 4: Large amount of ascites, small pleural effusions and subcutaneous edema, consistent with anasarca. 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 6: Sclerotic lesion of the left sacrum which may represent a bone island or metastatic disease. Paracentesis Ultrasound 08/16/19 17:20 IMPRESSION: 1. Successful ultrasound-guided paracentesis. 5 L of tracie-colored fluid obtained. Labs Labs: Laboratory Results - last 24 hr 08/16/19 08/19/19 08/19/19 16:26 05:22 05:22 WBC 5.7 RBC 3.94 L Hgb 12.6 L Hct 38.9 L MCV 99.0 MCH 32.2 MCHC 32.6 RDW 16.1 H Plt Count 103 L MPV 11.9 H PT 14.4 INR 1.2 APTT 32.4 Sodium Potassium Chloride Carbon Dioxide BUN Creatinine Estim Creat Clear Calc Estimated GFR Glucose Calcium Magnesium Total Bilirubin AST ALT Alkaline Phosphatase Total Protein Albumin Peritoneal Tot Protein <3.0 Peritoneal LDH 47 Peritoneal Glucose 89 08/19/19 05:22 WBC RBC Hgb Hct MCV MCH MCHC RDW Plt Count MPV PT INR APTT Sodium 139 Potassium 3.7 Chloride 105 Carbon Dioxide 29 BUN 24 H Creatinine 0.90 Estim Creat Clear Calc 74 Estimated GFR > 60 Glucose 93 Calcium 10.3 H Magnesium 1.8 Total Bilirubin 2.0 H AST 65 H ALT 35 Alkaline Phosphatase 155 H Total Protein 5.0 L Albumin 2.6 L Peritoneal Tot Protein Peritoneal LDH Peritoneal Glucose
[2019-08-19] MEDS: MAGNESIUM OXIDE 400 MG TABLET PO (09:33)
[2019-08-19] MEDS: FAMOTIDINE 20 MG/2 ML VIAL IV PUSH ×2 (09:33→21:21)
--- NOTE | 2019-08-19 11:57 | PCDIET ---
Nutrition Follow-Up Complete: Involuntary weight loss related to metastatic disease as evidenced by reported poor appetite and weight loss of uncertain amount. Intakes >50%, supplement acceptance. Goal: Progressing towards goal. Pt current nutrition is regular, Level 7. Nutrition recommendation: Agree Last recorded weight is 95.3 kg. Bowel Motility:+BM 08/15/19 Labs Reviewed:BUN 24,Alb 2.6 Meds Noted:Tums, Pepcid,Mag oxide Additional Notes: NPO for liver biopsy today. Diet order has been regular, intake fair. Agree with diet order. Po intake is encouraged, MD orders for ensure compact BID for additional 220 kcals and 9 gms protein. Monitoring: Follow up every 3 days.
--- NOTE | 2019-08-19 12:28 | PC.NURSE ---
To ultrasound via stretcher with bit tripoler.
--- NOTE | 2019-08-19 13:19 | PCOTNOTE ---
Attempted OT evaluation, per RN pt is off the unit for a procedure currently.
[2019-08-19 14:00] VITALS: BP 103/74; PULSE 73; RESP 16; TEMP 36; O2SAT 99
[2019-08-19 14:09] VITALS: BP 106/73; PULSE 70; RESP 24; O2SAT 94
[2019-08-19 14:10] VITALS: BP 101/69; PULSE 70; RESP 18; O2SAT 94
--- NOTE | 2019-08-19 14:28 | PCOTNOTE ---
Attempted OT evaluation, pt declined participating in OT today and reported feeling to tired to participate. Will attempt tomorrow. RN notified.
--- NOTE | 2019-08-19 14:30 | PC.NURSE ---
Patient returned from radiology via stretcher with transporter. Settled into bed. No distress noted. No c/o pain.
--- NOTE | 2019-08-19 16:45 | PM.IMPN ---
Progress Note: A&P Assessment and Plan (1) Left kidney mass: Code(s): N28.89 - Other specified disorders of kidney and ureter Status: Acute Assessment and Plan: CT reveals 2.8 left renal mass concerning for RCC, abdominal lymphadenopathy, innumerable liver masses, sclerotic lesion of sacrum, large amount of ascites. He has a remote history of prostate cancer over 10 years ago treated with radiation. Mother had colon CA. Discussed these results at length with patient and family members at bedside. Paracentesis 08/16 and again today, both yield 5L tracie fluid. Liver biopsy performed today. Peritoneal fluid culture with no growth so far. Pathology of ascitic fluid and liver biopsy pending. Patient admitted to the hospital at the request of oncology service. Appreciate oncology recommendations. (2) Liver masses: Code(s): R16.0 - Hepatomegaly, not elsewhere classified Status: Acute Assessment and Plan: See above. Liver biopsy performed today. Likely appropriate for outpatient follow up for results. (3) Thrombocytopenia: Code(s): D69.6 - Thrombocytopenia, unspecified Status: Acute Assessment and Plan: [place] to be secondary to above. Monitor platelets. Consider transfusion if necessary. (4) Transaminitis: Code(s): R74.0 - Nonspecific elevation of levels of transaminase and lactic acid dehydrogenase [LDH] Status: Acute Assessment and Plan: Secondary to metastatic disease to liver. Monitor LFTs. (5) Elevated lactic acid level: Code(s): R79.89 - Other specified abnormal findings of blood chemistry Status: Acute Assessment and Plan: Resolved. (6) Hyperbilirubinemia: Code(s): E80.6 - Other disorders of bilirubin metabolism Status: Acute Assessment and Plan: Appears to be secondary to metastatic disease to liver. Bili trending down. (7) Anasarca: Code(s): R60.1 - Generalized edema Status: Acute Assessment and Plan: Likely secondary to metastatic disease and liver involvement. Monitor fluid status. (8) Hypertension: Qualifiers: Hypertension type: unspecified Qualified Code(s): I10 - Essential (primary) hypertension Code(s): I10 - Essential (primary) hypertension Status: Chronic Assessment and Plan: Stable with some lower BPs. Hold home atenolol and monitor. (9) Heart murmur, systolic: Code(s): R01.1 - Cardiac murmur, unspecified Status: Acute Assessment and Plan: Echocardiogram results noted. 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 (11) Ambulatory dysfunction: Code(s): R26.2 - Difficulty in walking, not elsewhere classified Status: Acute Assessment and Plan: Certainly seems to have a component of peripheral vascular disease. He reports not much sensation or motor function in his lower extremities for > 1 year, however he still lives at home alone and reports ambulating with a walker. Appreciate PT/OT evals. Patient is not interested in SNF but is agreeable for home health. (12) DVT prophylaxis: Code(s): Z29.9 - Encounter for prophylactic measures, unspecified Status: Acute Assessment and Plan: SCDs Subjective Date/time seen: 08/19/19 0830 Interval history: Mr. Harman is a 69yo M admitted with ascites, liver masses, renal mass concerning for metastatic malignancy. He reports feeling well today but feels his abdomen is just as distended as
[2019-08-19 22:00] VITALS: BP 109/70; PULSE 74; RESP 16; TEMP 36.7; O2SAT 98
--- NOTE | 2019-08-19 23:43 | CONS_ITS ---
DATE OF CONSULTATION: 08/19/2019 REASON FOR CONSULTATION: Liver mass. HISTORY OF PRESENTING ILLNESS: This is a pleasant 69-year-old male with history of prostate cancer diagnosed 16 years ago, status post radiation therapy treatment. The patient came into medical attention with worsening bilateral lower extremity swelling for the last 5 months duration along with 30-pound weight loss in 6 months due to poor appetite. He denies any abdominal pain. He denies any bone pain. Denies any bleeding and bruising. CT scan was performed due to elevated liver enzymes that showed multiple liver masses, more confluent in the left hepatic lobe along with 2.8 cm left renal mass consistent with renal cell carcinoma and abdominal lymphadenopathy. There was large volume of ascites and a sclerotic lesion of the left sacrum bone consistent with metastatic disease. The patient had liver biopsy. REVIEW OF SYSTEMS: Twelve-point review of systems was reviewed and as per HPI, otherwise negative. PAST MEDICAL HISTORY: Hypertension and prostate cancer. PAST SURGICAL HISTORY: None. FAMILY HISTORY: Positive for liver cancer in the mother along with colon cancer. SOCIAL HISTORY: The patient is . He smokes half pack every 3 to 4 days. Denies any current alcohol use. The patient has no children. MEDICATIONS: Reviewed. ALLERGIES: REVIEWED. PHYSICAL EXAMINATION: GENERAL: This patient is a well-developed, well-nourished male, in no apparent distress, oriented x3. VITAL SIGNS: Per nursing note. HEENT: Normocephalic, atraumatic. Clear oropharynx. LUNGS: Clear to auscultation bilaterally. CARDIOVASCULAR: Regular rate and rhythm. No murmurs. ABDOMEN: Slightly distended. Bowel sounds are positive. No hepatosplenomegaly. EXTREMITIES: Mild bilateral lower extremity edema. NEURO: Grossly intact. LABORATORY DATA: WBC 5.7, hemoglobin 12.6, platelets 103,000. Calcium 10.3. Total bilirubin 2.0, AST 65, ALT 35, alkaline phosphate 155. ASSESSMENT AND PLAN: Likely metastatic renal cell carcinoma. The patient has a previous history of prostate cancer status post radiation therapy treatment 16 years ago. He came into the hospital with abdominal distention, bilateral lower extremity edema, poor appetite, and 25-pound weight loss. CT scan showed multiple liver masses along with abdominal lymphadenopathy and 2.8 cm left renal mass consistent with renal cell carcinoma. The patient is now status post liver biopsy. Pathology is pending. I will follow along with the patient once the pathology report is back for further recommendation for chemotherapy/immunotherapy management. I have answered all the questions to the patient's satisfaction. DENNISE Jordyn DUEÑAS M.D. MEDIA RELATIONS COORDINATOR MEDIA RELATIONS COORDINATOR D I MT: Samreen
[2019-08-20 04:55] LABS: Amylase Peritoneal Fluid <10 U/L
[2019-08-20 06:00] VITALS: BP 93/61; PULSE 75; RESP 18; TEMP 36.3; O2SAT 94
[2019-08-20 06:06] LABS: Hematocrit 39.1 % (42.0-52.0); Hemoglobin 12.5 g/dL (14.0-18.0); Immature Platelet Fraction Pct 5.2 % (0.9-11.2); Mean Corpuscular Hemoglobin 31.9 pg (26-34); Mean Corpuscular Volume 99.7 fl (80-100); Platelet Count Result 101 k/mm3 (150-375); Red Blood Count 3.92 M/mm3 (4.6-6.20); Red Cell Distribution Width 16.1 % (11.5-14.5); White Blood Count 5.6 K/mm3 (4.5-10.0)
[2019-08-20 06:17] LABS: Alanine Aminotransferase 28 U/L (4-50); Albumin Level 2.4 g/dL (3.5-5.1); Alkaline Phosphatase 145 U/L (38-126); Aspartate Amino Transferase 52 U/L (17-59); Bilirubin,Total 1.9 mg/dL (0.2-1.3); Blood Urea Nitrogen 23 mg/dL (9-20); Calcium 9.8 mg/dL (8.4-10.2); Carbon Dioxide 31 mmol/L (22-30); Chloride 101 mmol/L (98-107); Estimated CRCL calculation 67 ml/min; Estimated Glomerular Filt Rate > 60; Glucose 100 mg/dL (75-110); Magnesium 1.7 mg/dL (1.6-2.3); Phosphorus 2.6 mg/dL (2.5-4.5); Potassium 3.3 mmol/L (3.4-5.0); Sodium 137 mmol/L (137-145)
[2019-08-20] MEDS: MAGNESIUM OXIDE 400 MG TABLET PO (08:35)
[2019-08-20] MEDS: POTASSIUM CHLORIDE 20 MEQ TABLET 40 MEQ PO (08:35)
--- NOTE | 2019-08-20 08:49 | PCPTNOTE ---
Patient refused treatment this session due to increased fatigue and didn't want to do anything today. Explained the importance of therapy and of getting up, Pt continued to decline therapy. Will attempt again.
--- NOTE | 2019-08-20 09:58 | WPDGIPROGNO ---
Progress Note: A&P Additional Plan Patient appears comfortable today. Tolerating diet. He denies significant abdominal pain. On physical exam abdomen remains distended consistent with known ascites. It has improved after paracentesis. Appreciate Oncology evaluation. Impression 1. Abnormal CT scan. Suggestive of renal cancer. Liver metastases. And ascites. Liver biopsy results pending. Abdominal ascites cytology also pending. Plan is for diet as tolerated. Oncology follow-up for potential treatment is advised. No additional GI workup anticipated at this time. Subjective Date/time seen: 08/20/19 09:58 Objective Data Vital Signs Vital Signs: Vital Signs - 24 hr 08/19/19 14:00 08/19/19 14:09 08/19/19 14:10 Temperature 36.0 C L Pulse Rate 73 70 70 Respiratory Rate 16 24 H 18 Blood Pressure 103/74 106/73 101/69 Pulse Oximetry 99 94 94 08/19/19 22:00 08/20/19 06:00 Temperature 36.7 C 36.3 C L Pulse Rate 74 75 Respiratory Rate 16 18 Blood Pressure 109/70 93/61 L Pulse Oximetry 98 94 Intake/Output Intake/Output: Intake & Output 08/17/19 08/18/19 08/19/19 08/20/19 23:59 23:59 23:59 23:59 Intake Total 2050 990 950 300 Output Total 443 893 5131 250 Balance 1200 340 -4800 50 Meds/Results Medications: Active Medications Generic Name Dose Route Start Last Admin Trade Name Freq PRN Reason Stop Dose Admin Acetaminophen 650 mg 08/16/19 14:29 Tylenol Tablet PO Q4H PRN Mild Pain (1-3) or Fever Hydrocodone Bitart/Acetaminophen 1 tab 08/16/19 14:29 08/19/19 16:35 [place] 5-325 Mg PO 1 tab Q4H PRN Administration Pain Rated 4-6 Calcium Carbonate 200 mg 08/18/19 17:09 08/18/19 17:38 Tums PO 200 mg Q6H PRN Administration Indigestion Famotidine 20 mg 08/18/19 21:00 08/19/19 21:21 Pepcid Iv IV PUSH 20 mg Q12HR FELIX Administration Magnesium Oxide 400 mg 08/19/19 09:00 08/20/19 08:35 Mag-Ox PO 400 mg QAM FELIX Administration Morphine Sulfate 4 mg 08/16/19 14:29 Morphine Sulfate Inj IV PUSH Q2H PRN Pain Rated 7-10 Ondansetron HCl 4 mg 08/16/19 14:29 Zofran Inj IV PUSH Q4H PRN Nausea Radiology Results: ITS Impressions Abdomen/Pelvis CT 08/16/19 12:33 IMPRESSION: 1. Innumerable hypovascular masses of the liver, compatible with metastases, most confluent in the left hepatic lobe. 2: Complex enhancing 2.8 cm left renal mass, consistent with renal cell carcinoma. 3: Abdominal lymphadenopathy, compatible with metastatic disease. 4: Large amount of ascites, small pleural effusions and subcutaneous edema, consistent with anasarca. 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 6: Sclerotic lesion of the left sacrum which may represent a bone island or metastatic disease. Paracentesis Ultrasound 08/19/19 14:34 IMPRESSION: 1. Successful ultrasound-guided paracentesis yielding 5000 mL of tracie-colored fluid. Liver Biopsy Ultrasound 08/19/19 14:35 IMPRESSION: 1. Ultrasound-guided core needle biopsy of a liver mass. Labs Labs: Laboratory Results - last 24 hr 08/16/19 08/16/19 08/20/19 16:26 16:26 05:42 WBC 5.6 RBC 3.92 L Hgb 12.5 L Hct 39.1 L MCV 99.7 MCH 31.9 MCHC 32.0 RDW 16.1 H Plt Count 101 L MPV 12.0 H % Immature Plt Fraction 5.2 Sodium Potassium Chloride Carbon Dioxide BUN Creatinine Estim Creat Clear Calc Estimated GFR Glucose Calcium Phosphorus Magnesium Total Bilirubin AST ALT Alkaline Phosphatase Total Protein Albumin Peritoneal Albumin 1.0 Peritoneal Amylase <10 08/20/19 05:42 WBC RBC Hgb Hct MCV MCH MCHC RDW Plt Count MPV % Immature Plt Fraction Sodium 137 Potassium 3.3 L Chloride 101 Carbon Dioxide 31 H BUN 23 H Creatinine 1.00 Estim Creat Clear Calc 67 Estimated GFR > 60 Glucose 100
[2019-08-20] MEDS: FAMOTIDINE 20 MG/2 ML VIAL IV PUSH ×2 (10:00→20:29)
--- NOTE | 2019-08-20 11:01 | PCOTNOTE ---
Attempted OT evaluation on this date, pt declined OT at this time reported did not want to get out of bed and has 9/10 pain.
[2019-08-20 14:00] VITALS: BP 102/69; PULSE 70; RESP 16; TEMP 36; O2SAT 95
--- NOTE | 2019-08-20 17:39 | PM.IMPN ---
Progress Note: A&P Assessment and Plan (1) Left kidney mass: Code(s): N28.89 - Other specified disorders of kidney and ureter Status: Acute Assessment and Plan: ----- CT revealed 2.8 left renal mass concerning for RCC, abdominal lymphadenopathy, innumerable liver masses, sclerotic lesion of sacrum, large amount of ascites. He has a remote history of prostate cancer over 10 years ago treated with radiation. Mother had colon CA. Liver biopsy done 08/19 and awaiting results. Patient will follow up with Dr. Price. He will likely discharge tomorrow. Paracentesis 08/16 and again 08/19 both yield 5L tracie fluid. Peritoneal fluid culture with no growth so far. Ascietes likely d/t cancer. (2) Liver masses: Code(s): R16.0 - Hepatomegaly, not elsewhere classified Status: Acute Assessment and Plan: -----f/u with liver bx and Dr. Price. (3) Thrombocytopenia: Code(s): D69.6 - Thrombocytopenia, unspecified Status: Acute Assessment and Plan: -----[place] to be secondary to above. Monitor platelets. Consider transfusion if necessary. (4) Transaminitis: Code(s): R74.0 - Nonspecific elevation of levels of transaminase and lactic acid dehydrogenase [LDH] Status: Acute Assessment and Plan: ----Improved today. Secondary to metastatic disease to liver. Monitor LFTs. (5) Elevated lactic acid level: Code(s): R79.89 - Other specified abnormal findings of blood chemistry Status: Acute Assessment and Plan: -----Resolved. (6) Hyperbilirubinemia: Code(s): E80.6 - Other disorders of bilirubin metabolism Status: Acute Assessment and Plan: -----Appears to be secondary to metastatic disease to liver. Bili trending down. (7) Anasarca: Code(s): R60.1 - Generalized edema Status: Acute Assessment and Plan: -----Likely secondary to metastatic disease and liver involvement. Monitor fluid status. (8) Hypertension: Qualifiers: Hypertension type: unspecified Qualified Code(s): I10 - Essential (primary) hypertension Code(s): I10 - Essential (primary) hypertension Status: Chronic Assessment and Plan: -----Stable but low end of normal. Last bp 102/69. no dizziness reported. Hold home atenolol and monitor. (9) Heart murmur, systolic: Code(s): R01.1 - Cardiac murmur, unspecified Status: Acute Assessment and Plan: -----Echocardiogram results noted. 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 (11) Ambulatory dysfunction: Code(s): R26.2 - Difficulty in walking, not elsewhere classified Status: Acute Assessment and Plan: -----Pt did well with PT although resistent at first. Certainly seems to have a component of peripheral vascular disease. He reports not much sensation or motor function in his lower extremities for > 1 year, however he still lives at home alone and reports ambulating with a walker. Plan to go home with HH to his brothers house. (12) DVT prophylaxis: Code(s): Z29.9 - Encounter for prophylactic measures, unspecified Status: Acute Assessment and Plan: -----SCDs Additional Plan . Time Spent With Patient Time with patient: 25 - 35 minutes Subjective Date/time seen: 08/20/19 17:39 Interval history: Patient is a 69-year-old male here for ascites with new found cancer. Patient was seen today and I spoke with him and his family extensively about the plan of care. Patient states he has left shoulder pain and some abdominal pain the pain medication does help. I spoke to his brother who says that the patient gets weak and he has often had to go to his house and help him out of the chair. The patient was refusing to work wi
[2019-08-20 22:00] VITALS: BP 102/74; PULSE 71; RESP 18; TEMP 36.1; O2SAT 93
[2019-08-21 06:00] VITALS: BP 117/71; PULSE 67; RESP 18; TEMP 36.4; O2SAT 96
[2019-08-21] MEDS: MAGNESIUM OXIDE 400 MG TABLET PO (08:24)
[2019-08-21] MEDS: FAMOTIDINE 20 MG/2 ML VIAL IV PUSH (08:24)
--- NOTE | 2019-08-21 09:21 | WPDGIPROGNO ---
Progress Note: A&P Additional Plan Patient remains alert. Somewhat comfortable today. Tolerating diet. Physical exam reveals abdomen to be soft. Modest distention. Liver function tests are stable. CBC is stable. Pathology report discussed with pathologist. Tumor in liver most consistent with biliary tumor. Could be gallbladder or pancreas. This appears to be separate from the renal lesion identified on CT scan. Impression: 1.. Metastatic tumor. 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 2. Ascites. Likely malignant. Plan is for continued Oncology follow-up. Further workup under their direction. Hopefully patient can be discharged with outpatient management. Subjective Date/time seen: 08/21/19 09:21 Objective Data Vital Signs Vital Signs: Vital Signs - 24 hr 08/20/19 14:00 08/20/19 22:00 08/21/19 06:00 Temperature 36.0 C L 36.1 C L 36.4 C L Pulse Rate 70 71 67 Respiratory Rate 16 18 18 Blood Pressure 102/69 102/74 117/71 Pulse Oximetry 95 93 96 Intake/Output Intake/Output: Intake & Output 08/18/19 08/19/19 08/20/19 08/21/19 23:59 23:59 23:59 23:59 Intake Total 517 280 2689 340 Output Total 650 5750 550 300 Balance 340 -4800 535 40 Meds/Results Medications: Active Medications Generic Name Dose Route Start Last Admin Trade Name Freq PRN Reason Stop Dose Admin Acetaminophen 650 mg 08/16/19 14:29 Tylenol Tablet PO Q4H PRN Mild Pain (1-3) or Fever Hydrocodone Bitart/Acetaminophen 1 tab 08/16/19 14:29 08/20/19 16:49 [place] 5-325 Mg PO 1 tab Q4H PRN Administration Pain Rated 4-6 Calcium Carbonate 200 mg 08/18/19 17:09 08/18/19 17:38 Tums PO 200 mg Q6H PRN Administration Indigestion Famotidine 20 mg 08/18/19 21:00 08/21/19 08:24 Pepcid Iv IV PUSH 20 mg Q12HR FELIX Administration Magnesium Oxide 400 mg 08/19/19 09:00 08/21/19 08:24 Mag-Ox PO 400 mg QAM FELIX Administration Morphine Sulfate 4 mg 08/16/19 14:29 Morphine Sulfate Inj IV PUSH Q2H PRN Pain Rated 7-10 Ondansetron HCl 4 mg 08/16/19 14:29 Zofran Inj IV PUSH Q4H PRN Nausea Radiology Results: ITS Impressions Abdomen/Pelvis CT 08/16/19 12:33 IMPRESSION: 1. Innumerable hypovascular masses of the liver, compatible with metastases, most confluent in the left hepatic lobe. 2: Complex enhancing 2.8 cm left renal mass, consistent with renal cell carcinoma. 3: Abdominal lymphadenopathy, compatible with metastatic disease. 4: Large amount of ascites, small pleural effusions and subcutaneous edema, consistent with anasarca. 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 6: Sclerotic lesion of the left sacrum which may represent a bone island or metastatic disease. Paracentesis Ultrasound 08/19/19 14:34 IMPRESSION: 1. Successful ultrasound-guided paracentesis yielding 5000 mL of tracie-colored fluid. Liver Biopsy Ultrasound 08/19/19 14:35 IMPRESSION: 1. Ultrasound-guided core needle biopsy of a liver mass. Shoulder X-Ray 08/20/19 20:09 IMPRESSION: Mild left shoulder osteoarthritis.
--- NOTE | 2019-08-21 11:55 | PM.DS ---
DS: Diagnosis Admitting Diagnosis Admitting Diagnosis: Other specified disorders of kidney and ureter Discharge Diagnosis (1) Left kidney mass: Code(s): N28.89 - Other specified disorders of kidney and ureter Status: Acute Assessment and Plan: ----- CT revealed 2.8 left renal mass concerning for RCC, abdominal lymphadenopathy, innumerable liver masses, sclerotic lesion of sacrum, large amount of ascites. He has a remote history of prostate cancer over 10 years ago treated with radiation. Mother had colon CA. Liver biopsy done 08/19 and awaiting results. Patient will follow up with Dr. Price. Paracentesis 08/16 and again 08/19 both yield 5L tracie fluid. Peritoneal fluid culture with no growth so far. Ascietes likely d/t cancer. (2) Liver masses: Code(s): R16.0 - Hepatomegaly, not elsewhere classified Status: Acute (3) Thrombocytopenia: Code(s): D69.6 - Thrombocytopenia, unspecified Status: Acute Assessment and Plan: -----[place] to be secondary to above. Monitor platelets. Consider transfusion if necessary. (4) Transaminitis: Code(s): R74.0 - Nonspecific elevation of levels of transaminase and lactic acid dehydrogenase [LDH] Status: Acute (5) Elevated lactic acid level: Code(s): R79.89 - Other specified abnormal findings of blood chemistry Status: Acute Assessment and Plan: -----Resolved. (6) Hyperbilirubinemia: Code(s): E80.6 - Other disorders of bilirubin metabolism Status: Acute Assessment and Plan: -----Appears to be secondary to metastatic disease to liver. Bili trending down. (7) Anasarca: Code(s): R60.1 - Generalized edema Status: Acute Assessment and Plan: -----Likely secondary to metastatic disease and liver involvement. Monitor fluid status. (8) Hypertension: Qualifiers: Hypertension type: unspecified Qualified Code(s): I10 - Essential (primary) hypertension Code(s): I10 - Essential (primary) hypertension Status: Chronic (9) Heart murmur, systolic: Code(s): R01.1 - Cardiac murmur, unspecified Status: Acute (10) Iliac artery aneurysm, left: Code(s): I72.3 - Aneurysm of iliac artery Status: Acute Assessment and Plan: ----Pt unsure if he wanted to pursue this in light of his new dx. f/u with pcp for Vascular Surgery referral if wanted. 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 Vitals in the ER were temperature 97.6?, pulse 97, respiratory rate 19, blood pressure 115/63, pulse ox 100 on room air. White blood cell count 6.5, hemoglobin 15.1, hematocrit 46.9, platelets 129. Sodium 138, potassium 3.5, chloride 101, CO2 25, BUN 32, creatinine 1.1, glucose 81. CT of the abdomen pelvis: 1. Innumerable hypovascular masses of the liver, compatible with metastases, most confluent in the left hepatic lobe. 2: Complex enhancing 2.8 cm left renal mass, consistent with renal cell carcinoma. 3: Abdominal lymphadenopathy, compatible with metastatic disease. 4: Large amount of ascites, small pleural effusions and subcutaneous edema, consistent with anasarca. 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 6: Sclerotic lesion of the left sacrum which may represent a bone island or metastatic disease. Patient underwent a paracentesis 08/16 and 08/19
== END 2019-08-21 13:12 | disposition home health service (06) | DRG 436 ==
LOC: ANHED 14:23 → ANH2MED 15:18
PROVIDERS: Family Medicine; Internal Medicine Gastroenterology; Physician Assistant; Admitting Provider Hospitalist; Emergency Provider Emergency Medicine; PCP Emergency Medicine; Visit Provider Physician Assistant
DX: C78.7 Secondary malignant neoplasm of liver and intrahepatic bile duct (principal); C24.0 Malignant neoplasm of extrahepatic bile duct; C79.51 Secondary malignant neoplasm of bone; R18.0 Malignant ascites; Z23 Encounter for immunization; N28.89 Other specified disorders of kidney and ureter; Z85.46 Personal history of malignant neoplasm of prostate; Z92.3 Personal history of irradiation; R26.2 Difficulty in walking, not elsewhere classified; R01.1 Cardiac murmur, unspecified; D69.59 Other secondary thrombocytopenia; I72.3 Aneurysm of iliac artery; F17.210 Nicotine dependence, cigarettes, uncomplicated; E80.6 Other disorders of bilirubin metabolism; I10 Essential (primary) hypertension; Z91.81 History of falling
CPT/HCPCS: 36415; 47000; 49083; 73030; 74177; 76942; 80048; 80053; 80076; 82040; 82042; 82150; 82945; 83605; 83615; 83690; 83735; 84100; 84157; 85014; 85018; 85025; 85027; 85610; 85730; 87070; 87075; 87205; 88104; 88108; 88305; 88307; 88313; 88342; 89051; 90471; 90686; 93005; 93306; 97116; 97162; 97530; 99285; A9270; G0008; J7030; Q9967

== ENCOUNTER 2019-09-13 10:37 | Emergency (ER) | payer MEDICARE, SELFPAY ==
[2019-09-13] VITALS (9 sets, daily range): BP systolic 88–108; BP diastolic 56–75; PULSE 62–89; RESP 13–20; TEMP 36.4; O2SAT 96–100
--- NOTE | ~2019-09-13 | XR_ITS ---
EXAMINATION: XR chest 1V portable DATE: 09/13/2019 11:57 INDICATION: Weakness. TECHNIQUE: A single frontal view of the chest was obtained. COMPARISON: CT abdomen and pelvis 08/16/2019 FINDINGS: The lung volumes are small. Again seen is relative elevation of right hemidiaphragm. There are airspace opacities in the mid and lower lung zones. No pleural effusion or pneumothorax. The hear t size is normal. IMPRESSION: 1. Small lung volumes with airspace opacities in the mid and lower lung zones, likely atelectasis. Reviewed, dictated and finalized at location A. H LIFEGUARD
--- NOTE | ~2019-09-13 | CT_ITS ---
EXAMINATION: CT abdomen pelvis wo con DATE: 09/13/2019 12:47 INDICATION: Abdominal distention and weakness, recent diagnosis of bile duct adenocarcinoma TECHNIQUE: Computed tomography (CT) of the abdomen and pelvis was performed without intravenous contr ast. The dose-length product (DLP) was 1180.83 mGy-cm. Automated exposure control and iterative recon struction technique were employed. COMPARISON: 08/16/2019 FINDINGS: There is atelectasis of the visualized lower lobes. The heart size is normal. There is calc ified coronary artery atherosclerosis. A large volume of ascites is present. There are multiple stabl e including a large mass which occupies the entire left hepatic lobe and much of the right hepatic lo be. Cholelithiasis is noted. The liver, pancreas, adrenal glands, and right kidney are normal. There is a 2.6 cm irregular exophytic mass at the posterolateral aspect of the left kidney, consistent with renal cell carcinoma. Periportal and right retroperitoneal lymphadenopathy are unchanged. There is n o free intraperitoneal gas or evidence of bowel obstruction. Colonic diverticulosis is present withou t evidence of diverticulitis. There is calcified atherosclerosis of the aorta and many of the other a rteries. Again noted is a fusiform aneurysm at the proximal aspect of the left internal iliac artery. IMPRESSION: 1. Large volume of abdominal ascites. 2. Multiple liver masses, consistent with biopsy-proven bile duct adenocarcinoma. 3. Left kidney mass, consistent with renal cell carcinoma. 4. Periportal and retroperitoneal lymphadenopathy, metastatic disease. Reviewed, dictated and finalized at location A. ERY STORE MANAGER IMPRESSION: 1. Large volume of abdominal ascites. 2. Multiple liver masses, consistent with biopsy-proven bile duct adenocarcinom a. 3. Left kidney mass, consistent with renal cell carcinoma. 4. Periportal and retroperitoneal lymphadenopathy, metastatic disease.
--- NOTE | ~2019-09-13 | US_ITS ---
EXAMINATION: US paracentesis abd w/image DATE: 09/13/2019 14:33 INDICATION: Ascites. TECHNIQUE: The procedure and its risks, benefits, and alternatives were discussed with the patient. P otential risks discussed included bleeding and infection. The skin was prepped and draped in sterile fashion. 1% lidocaine was used for local anesthesia. Under ultrasound guidance, a 5 Fr catheter with trochar was advanced into the ascites in the left lower quadrant. Fluid was aspirated. The catheter w as removed, and a dressing was applied. There were no immediate complications. FINDINGS: Ultrasound images demonstrate ascites and the catheter within the fluid. IMPRESSION: 1. Successful ultrasound-guided paracentesis yielding 5000 mL of yellow fluid. Reviewed, dictated and finalized at location A. STS' BOOKING REPRESENTATIVE
--- NOTE | 2019-09-13 10:59 | ED.WEAKNESS ---
HPI - Weakness General Chief complaint: Abdominal Pain Stated complaint: weakness Time Seen by Provider: 09/13/19 10:53 Source: patient, family (pt's siblings) and RN notes reviewed Mode of arrival: EMS Limitations: no limitations History of Present Illness HPI Narrative: Pt is a 69 y/o male who presents to the ED via EMS with c/o generalized weakness and fatigue. According to the pt's sister, he was evaluated in the [place] ED on 08/16/19 for similar symptoms. According to old records, the pt was diagnosed with renal cell carcinoma with multiple liver masses. Pt was admitted to the hospital and eventually discharged home on 08/21/19. During his stay, he received two paracenteses and a liver biopsy. He was advised to schedule a follow-up appointment with oncologist, Dr. Price, but his sister notes that they haven't yet been able to see him. Pt currently reports generalized weakness, fatigue, decreased appetite, diffuse ABD pain, and ABD bloating, but denies any SOB. He rates his ABD pain at 15/10. Pt's brother notes that he has been mildly confused, stating that he has been unsure of what date and time it is. According to his sister, he has also had darker colored urine recently. His family notes that he is jaundice, but states that his skin color hasn't significantly changed recently. MD Complaint: generalized weakness and lack of energy Location: generalized Associated symptoms: confusion (mild), loss of appetite and other (diffuse ABD pain; ABD bloating; jaundice; dark colored urine) Related Data Home Medications Medication Instructions Recorded Confirmed aspirin [Aspirin Low Dose] 81 mg PO DAILY 08/16/19 08/16/19 atenolol 100 mg PO DAILY 08/16/19 08/16/19 cholecalciferol (vitamin D3) 2,000 unit PO DAILY 08/16/19 08/16/19 [Vitamin D3] Allergies Allergy/AdvReac Type Severity Reaction Status Date / Time Tetanus Vaccines and Toxoid Allergy Unknown Verified 06/20/19 10:50 Review of Systems Review of Systems: All systems reviewed & are unremarkable except as noted in HPI and below Constitutional: Constitutional: Reports fatigue, Reports poor appetite and Reports weakness (generalized) Respiratory: Respiratory: Denies dyspnea Gastrointestinal: Gastrointestinal: Reports abdominal pain (diffuse ABD pain) and Reports bloating Genitourinary: Genitourinary: Reports other (dark colored urine) Integumentary/Breasts: Skin/Breast: Reports jaundice Neurologic: Reports confusion (mild) [facility] Past Medical History Medical History Hypertension Liver masses Prostate cancer Renal cell carcinoma S/P abdominal paracentesis Surgical History Surgical History History of liver biopsy Social History Social History Smoking packs per day: 0.5 Smoking cigarettes per day: 10.0 Years smoked: 57 Smoking pack-years: 28.50 Smoking status: Current every day smoker Tobacco type: cigarettes Alcohol intake: former Substance use: never Substance use type: does not use Other substance usage details: heavy alcohol drinker 20 years ago Gender identity (if verbalized by the patient): Male Spiritual care concerns: No Agree to blood products: Yes Exam Const: General: alert and ill appearing; No diaphoretic Orientation/consciousness: patient oriented x3 HENMT: Ears: external ears normal Eyes: Sclera: scleral abnormality bilateral (icterus) Pupils: Equal, round and reactive pupils present EOM: EOMs intact bilaterally Chest: Chest palpation & inspection: normal inspection of the chest Resp: Effort & Inspection: normal respiratory effort, not tachypneic and no use of accessory muscles Auscultation: clear to auscultation bilaterally Cardio: Rate: regular rate Rhythm: regular rhythm Heart sounds: no murmurs GI: Inspection: distended GI Palp: Yes Soft to palpation, Yes
[2019-09-13] MEDS: HYDROMORPHONE HCL 1 MG/ML INJ 0.5 MG IV PUSH (11:27)
[2019-09-13] MEDS: ONDANSETRON INJ 4 MG/2 ML VIAL IV PUSH (11:27)
[2019-09-13 11:46] LABS: Basophils Percent Auto 0.2 % (0.2-1.2); Hematocrit 42.8 % (42.0-52.0); Hemoglobin 14.1 g/dL (14.0-18.0); Immature Granulocyte Absolute 0.02 K/mm3 (0.00-0.031); Immature Granulocyte Percent A 0.4 % (0-0.5); Immature Platelet Fraction Pct 3.1 % (0.9-11.2); Lymphocytes Absolute Auto 0.71 K/mm3 (0.9-3.2); Lymphocytes Percent Auto 13.6 % (18.3-44.2); Mean Corpuscular HGB Conc 32.9 g/dl (32-36); Mean Corpuscular Hemoglobin 32.7 pg (26-34); Mean Corpuscular Volume 99.3 fl (80-100); Mean Platelet Volume 11.4 fl (7.4-10.4); Monocytes Absolute Auto 0.8 K/mm3 (0.1-0.6); Monocytes Percent Auto 14.4 % (2.6-8.5); Neutrophils Absolute Auto 3.7 K/mm3 (1.3-6.7); Neutrophils Percent Auto 71.4 % (45.5-73.1); Platelet Count Result 126 k/mm3 (150-375); Red Blood Count 4.31 M/mm3 (4.6-6.20); Red Cell Distribution Width 15.8 % (11.5-14.5); White Blood Count 5.2 K/mm3 (4.5-10.0)
[2019-09-13 11:58] LABS: Alanine Aminotransferase 34 U/L (4-50); Albumin Level 2.8 g/dL (3.5-5.1); Alkaline Phosphatase 220 U/L (38-126); Aspartate Amino Transferase 79 U/L (17-59); Bilirubin,Total 8.9 mg/dL (0.2-1.3); Blood Urea Nitrogen 80 mg/dL (9-20); Carbon Dioxide 24 mmol/L (22-30); Chloride 93 mmol/L (98-107); Estimated CRCL calculation 29 ml/min; Estimated Glomerular Filt Rate 27; Glucose 54 mg/dL (75-110); Lipase 66 U/L (23-300); Potassium 3.7 mmol/L (3.4-5.0); Sodium 131 mmol/L (137-145)
[2019-09-13 12:00] LABS: INR 1.4; Prothrombin Time 16.4 Seconds (11.1-14.7)
[2019-09-13 12:01] LABS: Partial Thromboplastin Time 31.5 SECONDS (22.3-36.8)
[2019-09-13 12:13] LABS: Ammonia < 9 umol/L (9-30)
[2019-09-13 12:14] LABS: Magnesium 2.2 mg/dL (1.6-2.3)
[2019-09-13] MEDS: SODIUM CHLORIDE 0.9% IV 1,000 ML 999 ML IV CONT (12:40)
[2019-09-13] MEDS: DEXTROSE 50% 25 GM/50 ML SYRINGE IV PUSH (13:10)
--- NOTE | 2019-09-13 13:45 | PC.NURSE ---
Ultrasound notified nursing staff they will be coming to take patient for paracentesis at this time.
[2019-09-13] MEDS: LACTATED RINGERS 1,000 ML 150 ML IV CONT (17:31)
--- NOTE | 2019-09-13 18:23 | PC.NURSE ---
[facility] accepted transfer eta 2000
--- NOTE | 2019-09-13 18:27 | PC.NURSE ---
jefferson llanes brother [phone] erasto kee sister [phone]
[2019-09-13] MEDS: LACTATED RINGERS 1,000 ML 999 ML IV CONT (19:05)
--- NOTE | 2019-09-13 19:05 | PC.NURSE ---
vrbo to given LR as a bolus as opposed to hourly infusion
--- NOTE | 2019-09-13 20:08 | PC.NURSE ---
[facility] is here to take pt to [facility]
--- NOTE | 2019-09-13 20:17 | PC.NURSE ---
[facility] bp dropped in to the high 80's sys asked if he wanted to start any more maintenabce or bolus fluids no new orders to start fluids at this time, but did say EMS could give bolus of 1l LR on transport if SYS bp dropped to 80
== END 2019-09-13 20:10 | disposition short-term general hospital (02) ==
PROVIDERS: General Practice; Emergency Provider Emergency Medicine; PCP Emergency Medicine
DX: C64.2 Malignant neoplasm of left kidney, except renal pelvis (principal); C78.7 Secondary malignant neoplasm of liver and intrahepatic bile duct; E80.6 Other disorders of bilirubin metabolism; N17.9 Acute kidney failure, unspecified; I10 Essential (primary) hypertension; Z85.46 Personal history of malignant neoplasm of prostate; F17.210 Nicotine dependence, cigarettes, uncomplicated; R91.8 Other nonspecific abnormal finding of lung field
CPT/HCPCS: 36415; 49083; 71045; 74176; 80053; 82140; 83690; 83735; 85025; 85055; 85610; 85730; 96361; 96374; 96375; 99291; C1729; J1170; J2405; J7030; J7120